=== PATIENT | male | born 1955 | race Caucasian/White ===

== ENCOUNTER → 2018-10-28 | Outpatient (CLI) | payer OTHER, MEDICARE ==
[~2018-10-28] MED LIST: IOHEXOL-350 50ML VIAL IV ONE
== END | disposition home or self-care (01) ==
LOC: RAH 13:41
PROVIDERS: ATTEND Internal Medicine
DX: J43.9 Emphysema, unspecified (principal); J98.11 Atelectasis; I70.90 Unspecified atherosclerosis; J34.89 Other specified disorders of nose and nasal sinuses; F17.200 Nicotine dependence, unspecified, uncomplicated
CPT/HCPCS: 71270; Q9967

== ENCOUNTER 2020-05-09 13:02 | Inpatient (IN) | payer OTHER, MEDICARE ==
[~2020-05-09] VITALS: Ht 177.8 cm; Wt 116.9 kg
[2020-05-09 13:20] LABS: EOSINOPHILS % (AUTO) 3.5 % (0.0-8.0); HEMATOCRIT 49.8 % (42-54); LYMPHOCYTES % (AUTO) 36.9 % (21.0-51.0); MEAN CORPUSCULAR HGB CONC 32.5 g/dL (32.0-36.0); MEAN CORPUSCULAR VOLUME 98.2 fL (79-99); MONOCYTES % (AUTO) 14.1 % (3.0-13.0); NEUTROPHILS % (AUTO) 44.3 % (40.0-77.0); PLATELET COUNT (AUTO) 213 K/uL (130-400); RED BLOOD CELL COUNT(AUTO) 5.07 MIL/uL (4.50-6.20); RED CELL DISTRIBUTION WIDTH 12.2 % (11.0-15.5); WHITE BLOOD COUNT (AUTO) 5.2 K/uL (4.8-10.8)
[2020-05-09 13:37] LABS: INR 0.99 (0.85-1.15); PARTIAL THROMBOPLASTIN TIME 27.1 SEC (26.3-35.5); PROTHROMBIN TIME 10.7 SEC (9.6-11.6)
[2020-05-09 13:39] LABS: CREATININE 0.9 mg/dL (0.5-1.5)
[2020-05-09 13:44] LABS: ALBUMIN 4.2 g/dL (3.5-5.0); BILIRUBIN,TOTAL 0.4 mg/dL (0.2-1.0); TOTAL PROTEIN, SERUM 7.8 g/dL (6.0-8.3)
[2020-05-09 13:57] LABS: B-TYPE NATRIURETIC PEPTIDE 23 pg/mL (0-100)
[2020-05-09] MEDS ORDERED: IOHEXOL-350 75 ML VIAL IV ONE (15:13)
[2020-05-09] MEDS ORDERED: GUAIFENESIN-DM 200/20 MG 10 ML PO PRN (17:00)
[2020-05-09] MEDS ORDERED: DiphenhydrAMINE HCL 50 MG/ML VIAL IV PRN (17:00)
[2020-05-09] MEDS ORDERED: ZOLPIDEM TARTRATE 5 MG TAB PO PRN (17:00)
[2020-05-09] MEDS ORDERED: ONDANSETRON HCL 4 MG/2 ML VIAL IV PRN (17:00)
[2020-05-09] MEDS ORDERED: ACETAMINOPHEN-CODEINE 300/30MG TAB PO PRN (17:00)
[2020-05-09] MEDS ORDERED: MORPHINE SULFATE 4 MG/1ML SYG IV PRN (17:00)
[2020-05-09] MEDS ORDERED: ACETAMINOPHEN 325 MG TAB PO PRN (17:00)
[2020-05-09] MEDS ORDERED: SODIUM CHLORIDE 0.9% 1000ML 1,000 ML IV SCH (17:00)
[2020-05-09] MEDS ORDERED: SODIUM CHLORIDE 0.9% 1000ML 1,000 ML IV ONE (17:56)
[2020-05-09 20:55] VITALS: BP 118/63
[2020-05-09] MEDS: INSULIN HUMULIN R 100 UNIT/ML 3ML SQ SCH (21:00)
--- NOTE | 2020-05-09 21:06 | NUR ---
ADMIT PT ADMITTED TO ROOM 316, AAOX3. DENIES OF ANY PAINS NOR DISCOMFORT AT THIS TIME. ADMISSION CARE DONE. IVF OF NS FROM ER CONTINUED REGULATED AT 75CC/HR. ADMISSION DATA BASE COMPLETED. PCP IN AND V/S MONITORED, STABLE. SCD'S PLACED TO BILATERAL LOWER EXTREMITIES. TELE MONITOR PLACED WITH NSR REPORTED. ORIENTED TO ROOM AND UNIT. FALL PRECAUTIONS INITIATED. BED ALARM ON. PT VERBALIZES UNDERSTANDING OF FALL PRECAUTIONS. IN FOR MORE CARE AND MANAGEMENT. Addendum: 05/09/20 at 2127 by YARI CHAUDHRY RN RN Amended: Links added.
[2020-05-09] MEDS ORDERED: GARL600T2 PO (21:32)
[2020-05-09] MEDS ORDERED: MULT-1259 PO (21:32)
[2020-05-09] MEDS ORDERED: NAPR220C15 PO (21:32)
[2020-05-09] MEDS ORDERED: OMEG-148 PO (21:32)
[2020-05-09] MEDS ORDERED: ATOR10 PO (21:32)
[2020-05-10] VITALS (7 sets, daily range): BP systolic 86–126; BP diastolic 30–65
--- NOTE | 2020-05-10 02:00 | NUR ---
ROUNDS PT RESTING WELL, FAIRLY ASLEEP. NO DISTRESS NOTED. KEPT UNDISTURBED FOR NOW. WILL MONITOR PT.CALL LIGHT WITHIN REACH.
--- NOTE | 2020-05-10 05:13 | NUR ---
ROUNDS PT RESTING WELL, SLEPT AT LONG INTERVALS DURING THE SHIFT. KEPT COMFORTABLE IN BED. FOR MORE CARE.
[2020-05-10 05:22] LABS: HEMATOCRIT 50.4 % (42-54); MEAN CORPUSCULAR HEMOGLOBIN 31.4 pg (27.0-33.0); MEAN CORPUSCULAR HGB CONC 31.7 g/dL (32.0-36.0); RED BLOOD CELL COUNT(AUTO) 5.09 MIL/uL (4.50-6.20); RED CELL DISTRIBUTION WIDTH 11.9 % (11.0-15.5); WHITE BLOOD COUNT (AUTO) 6.5 K/uL (4.8-10.8)
[2020-05-10 05:38] LABS: CREATININE 0.8 mg/dL (0.5-1.5); POTASSIUM 4.4 mmol/L (3.5-5.1)
--- NOTE | 2020-05-10 05:46 | NUR ---
ORTHOSTATIC ORTHOSTATIC V/S TAKEN BY PCP, PLEASE REFER TO CHART. PT VERBALIZES FEELING DIZZINESS STANDING UP. PT PLACED BACK IN BED AND KEPT COMFORTABLE. PT NOT WALKED FOR 6MINS ORDERED DUE TO DIZZINESS. FOR MORE CARE.
[2020-05-10] MEDS: INSULIN HUMULIN R 100 UNIT/ML 3ML SQ SCH ×4 (05:55→21:00)
[2020-05-10] MEDS: PANTOPRAZOLE SODIUM 40 MG TABLET.DR PO SCH (10:30)
[2020-05-10] MEDS: ENOXAPARIN SODIUM 40 MG/0.4 ML SYRINGE SQ SCH (10:31)
[2020-05-10] MEDS: SODIUM CHLORIDE 0.9% 1000ML 1,000 ML IV SCH (12:00)
[2020-05-10 12:04] LABS: ABG BASE EXCESS 4.2 mmol/L (-2.0-3.0); ABG HCO3 32.6 mmol/L (21.0-28.0); ABG OXYGEN SATURATION 79.6 % (95.0-99.0); ABG PCO2 65 mmHg (35-48)
[2020-05-10 12:33] LABS: AMPHET/METH SCREEN,URINE NEGATIVE (NEGATIVE); BARBITURATE SCREEN, URINE NEGATIVE (NEGATIVE); BENZODIAZEPINES SCREEN,URINE NEGATIVE (NEGATIVE); CANNABINOID SCREEN,URINE NEGATIVE (NEGATIVE); COCAINE SCREEN,URINE NEGATIVE (NEGATIVE); OPIATE SCREEN,URINE NEGATIVE (NEGATIVE); PHENCYCLIDINE SCREEN,URINE NEGATIVE (NEGATIVE)
[2020-05-10] MEDS: THIAMINE HCL 100 MG TABLET PO SCH (12:35)
[2020-05-10] MEDS: FOLIC ACID 1 MG TABLET PO SCH (12:36)
--- NOTE | 2020-05-10 14:37 | NUR ---
DCP CM met with pt discussed dc plans. Pt is independent prior to admission, lives at home with boss/bestfriend in a trailer home. Denies any equipments/services. Feels safe to go back home, still drives and arranges own needs, friend able to assist with transportation and needs as necessary. DC plan to home once stable. CM to continue to follow up. Addendum: 05/10/20 at 1438 by CHANEL PIMENTEL LVN CM Amended: Links added.
--- NOTE | 2020-05-10 15:24 | NUR ---
CM Note: [facility] pending approval and delivery for O2 CM spoke to pt, qualified for home O2, agreeable, telephone consent [place] signed for [facility] In network DME. Faxed and emailed via secured email order, O2 test, and clinicals to [facility], confirmation received. Pt pending approval and delivery for O2 portable and concentrator. Primary nurse Raghu RIVAS aware. CM to continue to follow up.
[2020-05-10] MEDS: PREDNISONE 20 MG TABLET PO SCH (15:35)
[2020-05-10] MEDS ORDERED: LACTULOSE 20 GM/30 ML UDCUP PO SCH (16:10)
[2020-05-10] MEDS: IPRATROPIUM/ALBUTEROL SULFATE 3 ML SOLUTION IH SCH ×2 (18:43→23:26)
--- NOTE | 2020-05-10 20:00 | NUR ---
PM Assessment Received pt awake in bed, NS at 75cc/hr infusing well, routine assessment done, plan of care discuss, made aware still pending to have 2d echo as reported, currently denies discomfort.
[2020-05-11 00:04] VITALS: BP 112/51
[2020-05-11 03:31] VITALS: BP 99/54
[2020-05-11 05:51] LABS: MEAN CORPUSCULAR HEMOGLOBIN 31.1 pg (27.0-33.0); MEAN CORPUSCULAR HGB CONC 31.1 g/dL (32.0-36.0); MEAN CORPUSCULAR VOLUME 100.2 fL (79-99); RED BLOOD CELL COUNT(AUTO) 4.69 MIL/uL (4.50-6.20); RED CELL DISTRIBUTION WIDTH 11.8 % (11.0-15.5); WHITE BLOOD COUNT (AUTO) 7.3 K/uL (4.8-10.8)
[2020-05-11 05:59] LABS: CREATININE 0.9 mg/dL (0.5-1.5); POTASSIUM 4.6 mmol/L (3.5-5.1)
[2020-05-11] MEDS: SODIUM CHLORIDE 0.9% 1000ML 1,000 ML IV SCH (05:59)
[2020-05-11] MEDS: INSULIN HUMULIN R 100 UNIT/ML 3ML SQ SCH ×4 (06:04→20:21)
[2020-05-11] MEDS: IPRATROPIUM/ALBUTEROL SULFATE 3 ML SOLUTION IH SCH ×4 (06:25→23:56)
[2020-05-11 07:39] LABS: ABG BASE EXCESS 4.7 mmol/L (-2.0-3.0); ABG HCO3 34.3 mmol/L (21.0-28.0); ABG OXYGEN SATURATION 84.4 % (95.0-99.0); ABG PCO2 75 mmHg (35-48)
[2020-05-11 08:00] VITALS: BP 100/55
[2020-05-11] MEDS: THIAMINE HCL 100 MG TABLET PO SCH (09:49)
[2020-05-11] MEDS: PREDNISONE 20 MG TABLET PO SCH (09:49)
[2020-05-11] MEDS: ENOXAPARIN SODIUM 40 MG/0.4 ML SYRINGE SQ SCH (09:49)
[2020-05-11] MEDS: PANTOPRAZOLE SODIUM 40 MG TABLET.DR PO SCH (09:49)
[2020-05-11] MEDS: FOLIC ACID 1 MG TABLET PO SCH (09:49)
[2020-05-11] MEDS ORDERED: CHLORDIAZEPOXIDE HCL 25 MG CAP PO PRN (11:15)
[2020-05-11] MEDS ORDERED: PHARMACY COMMUNICATION MISC PRN (11:15)
[2020-05-11] MEDS ORDERED: THIAMINE HCL 100 MG, FOLIC ACID 1 MG, M.V.I. IV [ADULT] 10 ML in SODIUM CHLORIDE 0.9% 1... IV SCH (11:15)
[2020-05-11] MEDS ORDERED: LORAZEPAM 2 MG/ML 1 ML VIAL IVP PRN (11:15)
[2020-05-11] MEDS ORDERED: PROMETHAZINE HCL 25 MG TABLET PO PRN (11:15)
[2020-05-11] MEDS ORDERED: ONDANSETRON HCL 4 MG/2 ML VIAL IV PRN (11:15)
[2020-05-11 11:37] VITALS: BP 137/58
[2020-05-11] MEDS: LACTULOSE 20 GM/30 ML UDCUP PO PRN (12:44)
[2020-05-11 14:13] LABS: ABG BASE EXCESS 1.2 mmol/L (-2.0-3.0); ABG HCO3 31.2 mmol/L (21.0-28.0); ABG OXYGEN SATURATION 92.8 % (95.0-99.0); ABG PCO2 75 mmHg (35-48)
[2020-05-11] MEDS: DOXYCYCLINE 100MG+NS 250ML 250 ML IV SCH (15:35)
[2020-05-11 16:00] VITALS: BP 120/69
[2020-05-11 20:45] VITALS: BP 119/54
[2020-05-12 00:08] VITALS: BP 129/70
[2020-05-12] MEDS: DOXYCYCLINE 100MG+NS 250ML 250 ML IV SCH (00:42)
--- NOTE | 2020-05-12 02:11 | NUR ---
patient is on his bipap. spoke with respiratory therapist timothy about the incentive spirometer. she claims that the patient should be on the bipap tonight and use the incentive spirometer before or after breakfast when he stops using the bipap.
[2020-05-12] MEDS: LACTULOSE 20 GM/30 ML UDCUP PO PRN (03:39)
[2020-05-12 04:10] VITALS: BP 126/69
[2020-05-12] MEDS: INSULIN HUMULIN R 100 UNIT/ML 3ML SQ SCH ×2 (05:07→11:30)
[2020-05-12] MEDS: IPRATROPIUM/ALBUTEROL SULFATE 3 ML SOLUTION IH SCH ×2 (07:06→12:17)
[2020-05-12 07:09] LABS: BASOPHILS % (AUTO) 0.3 % (0.0-5.0); EOSINOPHILS % (AUTO) 0.7 % (0.0-8.0); HEMATOCRIT 44.7 % (42-54); LYMPHOCYTES % (AUTO) 20.9 % (21.0-51.0); MEAN CORPUSCULAR HEMOGLOBIN 31.5 pg (27.0-33.0); MEAN CORPUSCULAR VOLUME 98.5 fL (79-99); MONOCYTES % (AUTO) 9.8 % (3.0-13.0); NEUTROPHILS % (AUTO) 67.9 % (40.0-77.0); PLATELET COUNT (AUTO) 193 K/uL (130-400); RED BLOOD CELL COUNT(AUTO) 4.54 MIL/uL (4.50-6.20); RED CELL DISTRIBUTION WIDTH 11.9 % (11.0-15.5); WHITE BLOOD COUNT (AUTO) 11.9 K/uL (4.8-10.8)
[2020-05-12 07:37] LABS: ALBUMIN 3.5 g/dL (3.5-5.0); BILIRUBIN,TOTAL 0.5 mg/dL (0.2-1.0); CREATININE 0.8 mg/dL (0.5-1.5); TOTAL PROTEIN, SERUM 7.1 g/dL (6.0-8.3)
[2020-05-12 08:00] VITALS: BP 147/78
[2020-05-12 08:07] LABS: ABG BASE EXCESS 3.7 mmol/L (-2.0-3.0); ABG HCO3 30.1 mmol/L (21.0-28.0); ABG OXYGEN SATURATION 93.2 % (95.0-99.0); ABG PCO2 52 mmHg (35-48)
[2020-05-12] MEDS ORDERED: MULTIVITAMIN TABLET PO SCH (09:00)
[2020-05-12] MEDS: PANTOPRAZOLE SODIUM 40 MG TABLET.DR PO SCH (11:01)
[2020-05-12] MEDS: PREDNISONE 20 MG TABLET PO SCH (11:02)
[2020-05-12] MEDS: THIAMINE HCL 100 MG TABLET PO SCH (11:02)
[2020-05-12] MEDS: FOLIC ACID 1 MG TABLET PO SCH (11:02)
[2020-05-12] MEDS: ENOXAPARIN SODIUM 40 MG/0.4 ML SYRINGE SQ SCH (11:05)
[2020-05-12 12:00] VITALS: BP 121/68
--- NOTE | 2020-05-12 12:42 | NUR ---
Confirmed with pt's employer that home O2 has been delivered and set up at pt's house.
[2020-05-12] MEDS ORDERED: PRED10TA3 PO (12:50)
[2020-05-12] MEDS ORDERED: DOXY100C40 PO (12:50)
[2020-05-12] MEDS ORDERED: IPRA3AMP24 IH (12:50)
[2020-05-12] MEDS ORDERED: PANT40TA PO (12:50)
[2020-05-12] MEDS ORDERED: LACT PO (12:50)
--- NOTE | 2020-05-12 15:00 | NUR ---
Portable O2 Loan Pt mentions that his O2 was delivered to his home and there is no one that can get it to bring to him for transport home. Pt in agreement to borrow [facility] portable O2 and will have his sister bring it back after dropping him off at home. O2 Loan agreement signed. CN obtained portable O2 for pt dc.
--- NOTE | 2020-05-12 15:36 | NUR ---
Discharge instructions provided in room with pt. Emphasis on new dx COPD, management, alternating activity and rest, s/s to monitor for and when to seek emergency care vs dial 911. Coached on importance of smoking cessation, avoidance of triggers, compliance with medications, proper use of oxygen therapy. Pt understands he must call to schedule follow up appointments with Dr. Lisbet Martines and [facility] for continuation of care and possible sleep studies. Discussed new rx of doxycycline, albuterol, lactulose, and prednisone. Educated regarding purpose, route, frequency, and duration of treatment as well as side effects and adverse effects. Rx has already been E transmitted to pharmacy of choice. PIV already removed by pt prior, no bleeding noted. Pt connected to portable o2 tank @ 2lpm for transport home, sister to return once pt is home and home o2 is in use. Pt wheeled [facility] by [facility] staff for transport home via private vehicle, accompanied by family. Pt in stable condition at time of discharge.
== END 2020-05-12 15:30 | disposition home or self-care (01) | DRG 189 ==
LOC: EDH 13:02 → OBSVTOIN 16:57 → EDHIP 16:57 → 3CH 20:37
PROVIDERS: ADMIT Internal Medicine Critical Care Medicine; ATTEND Internal Medicine Critical Care Medicine
PROC: 5A09357 Assistance with Respiratory Ventilation, Less than 24 Consecutive Hours, Continuous Positive Airway Pressure (ICD-10-PCS; principal; 2020-05-11)
PROC: 5A09357 Assistance with Respiratory Ventilation, Less than 24 Consecutive Hours, Continuous Positive Airway Pressure (ICD-10-PCS; 2020-05-12)
DX: J96.21 Acute and chronic respiratory failure with hypoxia (principal); I50.30 Unspecified diastolic (congestive) heart failure; E66.2 Morbid (severe) obesity with alveolar hypoventilation; J96.22 Acute and chronic respiratory failure with hypercapnia; J43.9 Emphysema, unspecified; F10.10 Alcohol abuse, uncomplicated; E78.5 Hyperlipidemia, unspecified; F17.210 Nicotine dependence, cigarettes, uncomplicated; I27.20 Pulmonary hypertension, unspecified; F19.10 Other psychoactive substance abuse, uncomplicated; Z68.37 Body mass index [BMI] 37.0-37.9, adult; Z71.51 Drug abuse counseling and surveillance of drug abuser
CPT/HCPCS: 36415; 36600; 70450; 71045; 71275; 74018; 80048; 80053; 80305; 82140; 82550; 82607; 82746; 82803; 82948; 83880; 84484; 85025; 85027; 85610; 85730; 93005; 93306; 93880; 94640; 94660; 94664; 94760; G0378; J1650; J1815; J3411; J3490; J7030; Q9967

== ENCOUNTER → 2021-09-23 | Outpatient (CLI) | payer OTHER, MEDICARE ==
[~2021-09-23] MED LIST changes: +ATOR10 PO; +DOXY-336 PO; +GARL600T2 PO; -IOHEXOL-350 50ML VIAL IV ONE; +IPRA3AMP24 IH; +LACT PO; +MULT-1259 PO; +NAPR220C15 PO; +OMEG-148 PO; +PANT40TA PO; +PRED10TA3 PO
== END | disposition home or self-care (01) ==
LOC: RAH 13:54
PROVIDERS: ATTEND Internal Medicine
DX: I25.10 Atherosclerotic heart disease of native coronary artery without angina pectoris (principal); G47.33 Obstructive sleep apnea (adult) (pediatric); J43.9 Emphysema, unspecified
CPT/HCPCS: 71250